=== PATIENT | female | born 1985 | race Caucasian/White ===

== ENCOUNTER 2019-05-12 16:39 | Emergency (ER) | payer OTHER ==
[~2019-05-12] VITALS: Ht 175.3 cm; Wt 90.7 kg
[2019-05-12] MEDS ORDERED: COCONUT OIL100 GM MISC (17:07)
[2019-05-12] MEDS ORDERED: CAYENNE450 MG PO (17:07)
[2019-05-12] MEDS ORDERED: GARLIC1 EAC1 PO (17:07)
[2019-05-12] MEDS ORDERED: ST. JOHN'S WOR300 MG PO (17:08)
[2019-05-12] MEDS ORDERED: FIBER500 MG PO (17:09)
[2019-05-12] MEDS ORDERED: VALERIAN ROOT100 MG PO (17:09)
[2019-05-12] MEDS ORDERED: FEVERFEW EXTRACT1 GM MISC (17:09)
== END 2019-05-12 18:47 | disposition home or self-care (01) ==
LOC: ED 16:39
DX: L30.9 Dermatitis, unspecified (principal); R05 Cough; F31.9 Bipolar disorder, unspecified; F17.200 Nicotine dependence, unspecified, uncomplicated; Z88.0 Allergy status to penicillin; Z88.2 Allergy status to sulfonamides; Z88.5 Allergy status to narcotic agent; Z88.8 Allergy status to other drugs, medicaments and biological substances; Z79.899 Other long term (current) drug therapy
CPT/HCPCS: 71046; 99284-25